=== PATIENT | male | born 1975 | race Caucasian/White ===

== ENCOUNTER 2024-05-25 12:13 | Emergency (ER) | payer OTHER, SELFPAY ==
[2024-05-25 12:16] VITALS: BP 168/118; PULSE 67; RESP 18; TEMP 36.5; O2SAT 98; BMI 29.4
--- NOTE | 2024-05-25 12:34 | EX.ED.DYSGE1 ---
HPI History of Present Illness Chief Complaint: Nausea/Vomiting Detail of Chief Complaint: Nausea, vomiting, and diarrhea Informant: patient Narrative Narrative: Patient presents emergency department with vomiting and diarrhea x 2 days. Patient states that he had eaten pizza 2 nights ago and later that evening started having vomiting and diarrhea. Seemed to improve yesterday after 6 PM. This morning he woke up and ate some toast and drink some water and then started to throw up again. Patient missed 2 days of work. [place] prior to his illness starting and was around a lot of people but otherwise does not know of any sick contacts. He denies fevers or chills or sweats. He denies abdominal pain. [facility] Medical History (Updated 05/25/24 @ 13:[address] Juli Pepe DO) GERD (gastroesophageal reflux disease) Home Medications ?Medication ?Instructions ?Recorded ?Last Taken ?Type omeprazole 20 mg capsule,delayed 20 mg PO DAILY 05/25/24 Unknown History release ondansetron 4 mg disintegrating 4 mg PO Q8H PRN PRN Nausea #10 tabs 05/25/24 Unknown Rx tablet Allergy/AdvReac Type Severity Reaction Status Date / Time No Known Allergies Allergy Verified 05/25/24 12:15 Surgical History (Updated 05/25/24 @ 12:31 by Jesenia Weaver) Hx of appendectomy Social History (Updated 05/25/24 @ 12:31 by Jesenia Weaver) household members: family housing: house Smoking Status: Former smoker ROS ROS ED Review of Systems ROS Unobtainable: other Constitutional Constitutional ED: Reports lethargy; Denies chills, fever(s), sweats or weight loss Eyes Eyes: Denies blurry vision, change in vision or diplopia ENT ENT ED: Denies rhinorrhea or sore throat Cardiovascular Cardiovascular: Denies chest pain, orthopnea or racing heartbeat Respiratory/Chest Respiratory/Chest: Denies cough, dyspnea, dyspnea on exertion, orthopnea or sputum Gastrointestinal Gastrointestinal: Reports diarrhea, nausea and vomiting; Denies abdominal pain Genitourinary Genitourinary ED: Denies dysuria, hematuria or urinary frequency Musculoskeletal Musculoskeletal: Denies arthralgias, back pain, myalgias or neck pain Integumentary Denies abscess, Abrasions or rash Neurologic Neurologic: Denies headache(s) or weakness Psychiatric Psychiatric: Denies anxiety, depression or suicidal thoughts Endocrine Endocrinology: Denies polydipsia, polyphagia or polyuria Hematologic/Lymphatic Hematologic/Lymphatic: Denies easy bleeding, easy bruising or lymphadenopathy Allergic/Immunologic Allergic/Immunologic ED: Denies mouth swelling, tongue swelling or urticaria EXAM Physical Exam Const Vital Signs: 05/25/24 12:16 05/25/24 13:48 Temperature 97.7 F L 97.7 F L Temperature Source Temporal Pulse Rate 67 71 Respiratory Rate 18 16 Blood Pressure 168/118 H 160/91 H Blood Pressure Mean 134 114 Pulse Ox 98 98 Oxygen Delivery Method Room Air Positive well nourished and well developed General Appearance ED: well developed and NAD HEENT Reports TM's clear and moist mucous membranes normocephalic and atraumatic; Negative for trauma or tenderness Tympanic Membrane ED: Yes TM's clear Eyes PERRL and EOMs intact bilaterally General Eye ED: Negative for pale conjunctiva or scleral icterus Neck no lymphadenopathy, supple and no JVD General: Negative for tenderness Chest Wall inspection of chest normal and palpation of chest normal Chest: Negative for tenderness Resp normal respiratory effort and clear to auscultation bilaterally Effort and Inspection: Negative for respiratory distress or pain with movement Auscultation: Negative for rhonchi, wheezes or diminished lung sounds Cardio regular rate, regular rhythm, S1 normal heart sound, S2 normal heart sound and no murmurs Peripheral Pulses: pulses 2+ throughout GI normal to inspection, nondistended, normoactive bowel sounds, soft to palpation, non-tender, non-distended and no masses Back/Spine no CVA tenderness and no thoracic nor lumbar tenderness Extremity normal to inspection General Extremety ED: Negative for edema General Extremity: Negative for edema Neuro oriented x3, CN's II-XII intact bilaterally, no sensory deficits noted and gait normal Sensorium / Orientation: awake, alert, oriented to person, oriented to place and oriented to time Motor Exam: strength 5/5 throughout and strength abnormal Psych mental status grossly normal Skin no rashes or lesions noted and no wounds MDM MDM MDM Narrative Medical decision making narrative: Patient presents the emergency department complaint of vomiting and diarrhea x 2 days. Denies abdominal pain. Clinically suspect food poisoning versus viral gastroenteritis. Suspect viral gastroenteritis more likely. IV line established. He was given a liter mostly fluid bolus. He was given a dose of Zofran 4 mg IV. CBC with differential obtained showed a slightly elevated white blood cell count of 13.8 with hemoglobin 16.8 and platelet count of 229. Chemistries were unremarkable. Patient clinically looks well. Will discharge to home after liter of fluid infused with prescription for Zofran. He is instructed to use Imodium as needed for diarrhea. Will refer to primary care physician on-call for no doc. Advised to return if persistent vomiting, diarrhea, dehydration, abdominal pain, or condition should worsen anyway. Clinically suspect a viral gastroenteritis. Lab Data Attestation: I reviewed the patient's lab results. Labs: Laboratory Results - last 24 hr 05/25/24 12:33 WBC 13.8 H RBC 5.24 Hgb 16.8 H Hct 49.2 MCV 93.9 MCH 32.1 H MCHC 34.1 RDW Std Deviation 42.2 RDW Coeff of Jenna 12.2 Plt Count 229 MPV 10.9 Immature Gran % (Auto) 0.700 Neut % (Auto) 56.9 Lymph % (Auto) 33.1 [place] % (Auto) 7.7 Eos % (Auto) 0.9 Baso % (Auto) 0.7 Absolute Neuts (auto) 7.9 H Absolute Lymphs (auto) 4.57 H Nucleated RBC % 0 Sodium 140 Potassium 4.2 Chloride 108 H Carbon Dioxide 25.0 Anion Gap 7 BUN 8 Creatinine 1.14 Estim Creat Clear Calc 100.16 Est GFR (MDRD) Af Amer 88 Est GFR (MDRD) Non-Af 73 BUN/Creatinine Ratio 7.0 L Glucose 133 H Calcium 9.1 Discharge Plan Triage Chief Complaint: Nausea/Vomiting ED Provider: Juli Pepe Dx/Rx/DC Orders Clinical Impression: Viral gastroenteritis Instructions: ED Gastroenteritis, Viral (Adult) Prescriptions: New ondansetron 4 mg tablet,disintegrating 4 mg PO Q8H PRN PRN (Reason: Nausea) Qty: 10 0RF No Action omeprazole 20 mg capsule,delayed release(DR/EC) 20 mg PO DAILY Primary Care Provider: Care Physician,No Primary Referrals: Tai Montemayor MD [Med Staff - Active Staff] - 5-7 Days NOT,DEFINED [Non-Staff] - Print Language: [place] Disposition Disposition: Home, Self Care Discharge Date/Time: 05/25/24 13:49
[2024-05-25 12:42] LABS: Absolute Lymphocyte Count 4.57 X10^3/uL (0.83-4.51); Absolute Neutrophil Count 7.9 X10^3/uL (2.0-7.7); Basophil# 0.09 X10^3/uL; Basophil% 0.7 % (0-1); Eosinophil# 0.12 X10^3/uL; Eosinophils% 0.9 % (0-5); Hematocrit 49.2 % (40-54); Hemoglobin 16.8 g/dL (13.0-16.5); Lymphocyte # 4.57 X10^3/ul (0.83-4.51); Lymphocyte % 33.1 % (19-41); Mean Corp Hgb Conc 34.1 g/dL (32-36); Mean Corpuscular Hgb 32.1 pg (27.0-32.0); Mean Corpuscular Volume 93.9 fL (80-94); Mean Platelet Vol. 10.9 fl (6.2-12.0); Monocyte# 1.07 X10^3/uL; Monocyte% 7.7 % (0-10); NRBC Flagged by Analyzer 0 % (0-5); Neutrophil # 7.86 X10^3/uL (2.7-7.7); Neutrophil % 56.9 % (47-70); Platelet Count 229 K/mm3 (150-450); RBC Distribution Width CV 12.2 % (11.6-14.6); RBC Distribution Width SD 42.2 fl (35.1-43.9); Red Blood Count 5.24 M/mm3 (4.6-6.2); White Blood Count 13.8 K/mm3 (4.4-11.0)
[2024-05-25] MEDS: Ondansetron 4 MG/2 ML Vial IV (12:46)
[2024-05-25] MEDS: 0.9% Normal Saline (1000mL) 1,000 ML 1000 ML IV (12:46)
[2024-05-25 13:02] LABS: Anion Gap 7 (5-15); BUN 8 mg/dL (7-18); Calcium,Total 9.1 mg/dL (8.5-10.1); Chloride 108 mmol/L (98-107); Creatinine, Serum 1.14 mg/dL (0.70-1.30); EST Glomerular Filtration Rate 73 mL/min (>60); Est Glom Filt Rate - Afr Amer 88 mL/min (>60); Estimated Creatinine Clearance 100.16 ml/min; Glucose 133 mg/dL (74-106); Potassium 4.2 mmol/L (3.5-5.1); Sodium Level 140 mmol/L (136-145)
[2024-05-25 13:48] VITALS: BP 160/91; PULSE 71; RESP 16; TEMP 36.5; O2SAT 98
== END 2024-05-25 13:49 | disposition home or self-care (01) ==
PROVIDERS: Emergency Provider Emergency Medicine; Visit Provider Emergency Medicine
DX: A08.4 Viral intestinal infection, unspecified (principal); K21.9 Gastro-esophageal reflux disease without esophagitis; Z87.891 Personal history of nicotine dependence
CPT/HCPCS: 80048; 85025; 96361; 96374; 99283; J7030; A4216; J2405